=== PATIENT | male | born 1930 | race Caucasian/White ===

== ENCOUNTER 2017-05-07 08:23 | Day surgery (SDC) | payer OTHER ==
[~2017-05-07] VITALS: Ht 175.3 cm; Wt 93.1 kg
[~2017-05-07 08:23] MED LIST: AMOCLA875 PO; ATOR80 PO; CARV3.125 PO; CLOP75 PO; Colace100 MG PO; DOXA4; DOXA4 PO; FOLI1; GLIM2; HEMOTOB PR; IBUP200; Lisinopril2.5 MG; PANT40; PRED20; PRED5; Percocet 5-3251 EACH PO; SERT25 PO; VITB100
[2017-05-07] MEDS ORDERED: Aspir 8181 MG (09:08)
[2017-05-07] MEDS ORDERED: CARV3.125 (09:08)
[2017-05-07] MEDS ORDERED: TAMS.4ER (09:08)
== END 2017-05-07 11:20 | disposition home or self-care (01) ==
LOC: ORSCSDS 08:23
PROVIDERS: Surgery
PROC: 0DBL8ZX Excision of Transverse Colon, Via Natural or Artificial Opening Endoscopic, Diagnostic (ICD-10-PCS; principal; 2017-05-07 10:00)
PROC: 0DBK8ZX Excision of Ascending Colon, Via Natural or Artificial Opening Endoscopic, Diagnostic (ICD-10-PCS; principal; 2017-05-07 10:00)
PROC: 0DBN8ZX Excision of Sigmoid Colon, Via Natural or Artificial Opening Endoscopic, Diagnostic (ICD-10-PCS; principal; 2017-05-07 10:00)
DX: Z12.11 Encounter for screening for malignant neoplasm of colon (principal); D12.2 Benign neoplasm of ascending colon; D12.3 Benign neoplasm of transverse colon; D12.5 Benign neoplasm of sigmoid colon; K64.8 Other hemorrhoids; K57.30 Diverticulosis of large intestine without perforation or abscess without bleeding; Z80.0 Family history of malignant neoplasm of digestive organs; Z86.010 Personal history of colon polyps; I10 Essential (primary) hypertension; M06.9 Rheumatoid arthritis, unspecified; N40.0 Benign prostatic hyperplasia without lower urinary tract symptoms; G47.33 Obstructive sleep apnea (adult) (pediatric); I25.10 Atherosclerotic heart disease of native coronary artery without angina pectoris; I25.2 Old myocardial infarction; Z79.01 Long term (current) use of anticoagulants; Z79.82 Long term (current) use of aspirin; Z79.899 Other long term (current) drug therapy
CPT/HCPCS: 88305; 93005; 93010; J0330; J1980; J2405

== ENCOUNTER → 2017-09-19 | Outpatient (CLI) | payer OTHER ==
[~2017-09-19] MED LIST changes: +Aspir 8181 MG; +CARV3.125; +TAMS.4ER
[2017-09-19 08:28] LABS: Source, Urine Clean Catch
[2017-09-19 14:35] LABS: Bacteria Rare /hpf; Red Blood Cells, Urine 0-2 /hpf (0-2); Squamous Epithelial Cells Rare /hpf (Few); White Blood Cells, Urine 0-2 /hpf (0-5)
== END | disposition home or self-care (01) ==
LOC: LAB 08:26 → LAB SHORT 08:26
PROVIDERS: Nurse Practitioner Family
DX: R31.21 Asymptomatic microscopic hematuria (principal)
CPT/HCPCS: 81015

== ENCOUNTER → 2017-09-20 | Outpatient (CLI) | payer OTHER ==
[2017-09-20 16:33] LABS: Bacteria Not Seen /hpf; Red Blood Cells, Urine Not Seen /hpf (0-2); Squamous Epithelial Cells Rare /hpf (Few); White Blood Cells, Urine 0-2 /hpf (0-5)
== END ==
LOC: LAB 11:10 → LAB SHORT 11:10 → EDSTATUS 09-17 12:20 → LAB FUT 09-17 12:20
PROVIDERS: Nurse Practitioner Family
DX: R31.21 Asymptomatic microscopic hematuria (principal)
CPT/HCPCS: 81015

== ENCOUNTER → 2019-04-01 | Outpatient (CLI) | payer OTHER ==
[2019-04-01 16:34] LABS: Protein, Urine Random 178.5 mg/dL (0.0-11.9)
[2019-04-01 20:09] LABS: Hemoglobin 14.2 g/dL (13.5-17.5)
[2019-04-01 20:40] LABS: Albumin, Blood 3.4 g/dL (3.4-5.0); Anion Gap 7 mmol/L (6-16); Blood Urea Nitrogen 31 mg/dL (8-24); Bun/Creatinine Ratio 21.8 (12.0-20.0); CO2, Blood 24 mmol/L (21-32); Calcium, Blood 9.3 mg/dL (8.5-10.1); Chloride, Blood 108 mmol/L (98-108); Creatinine, Blood 1.42 mg/dL (0.60-1.20); Glomerular Filtration Rate 50 (60-); Glucose, Blood 97 mg/dL (70-99); Phosphorus, Blood 3.6 mg/dL (2.5-4.9); Potassium, Blood 4.2 mmol/L (3.5-5.5); Sodium, Blood 139 mmol/L (136-145)
== END | disposition home or self-care (01) ==
LOC: LAB 14:52 → LAB SHORT 14:52
PROVIDERS: Internal Medicine
DX: N17.9 Acute kidney failure, unspecified (principal); I10 Essential (primary) hypertension
CPT/HCPCS: 36415; 80069; 82306; 82570; 83970; 84156; 85014; 85018

== ENCOUNTER → 2019-06-10 | Outpatient (CLI) | payer OTHER ==
[2019-06-10 13:00] LABS: Protein, Urine Quantitative 58.8 mg/dL (0.0-11.9)
== END | disposition home or self-care (01) ==
LOC: LAB 11:10 → LAB SHORT 11:10
PROVIDERS: Internal Medicine
DX: N17.9 Acute kidney failure, unspecified (principal)
CPT/HCPCS: 81050; 84156

== ENCOUNTER 2020-04-30 07:25 | Emergency (ER) | payer OTHER ==
[~2020-04-30] VITALS: Ht 172.7 cm; Wt 93.0 kg
[~2020-04-30 07:25] MED LIST changes: -Aspir 8181 MG; +Aspir 8181 MG PO
[2020-09-21] MEDS ORDERED: CYCL10 PO (08:21)
[2020-09-21] MEDS ORDERED: LOSA50 PO (08:21)
[2020-09-21] MEDS ORDERED: AMLO5 PO (08:21)
[2020-09-21] MEDS ORDERED: OMEP20ER PO (08:22)
== END 2020-04-30 08:42 | disposition home or self-care (01) ==
LOC: ER 07:25
DX: M25.551 Pain in right hip (principal); G89.29 Other chronic pain; I10 Essential (primary) hypertension; E78.00 Pure hypercholesterolemia, unspecified; Z88.1 Allergy status to other antibiotic agents; Z88.5 Allergy status to narcotic agent; Z79.02 Long term (current) use of antithrombotics/antiplatelets; Z79.82 Long term (current) use of aspirin; Z79.899 Other long term (current) drug therapy
CPT/HCPCS: 73502; 99283-25

== ENCOUNTER → 2020-05-05 | Outpatient (CLI) | payer OTHER ==
[~2020-05-05] MED LIST changes: +AMLO5 PO; +CYCL10 PO; +DOXA2 PO; +LOSA50 PO; +OMEP20ER PO
[2020-05-05 15:50] LABS: Creatinine, Urine Random 70.6 mg/dL (27.00-270.00); Protein, Urine Random 92.8 mg/dL (0.0-11.9); Protein/Creat Ratio, Ur Random 1.3
== END | disposition home or self-care (01) ==
LOC: LAB SHORT 12:00 → PLD 12:00
PROVIDERS: Internal Medicine
DX: N18.31 Chronic kidney disease, stage 3a (principal)
CPT/HCPCS: 82570; 84156

== ENCOUNTER 2020-09-28 07:05 | Day surgery (SDC) | payer OTHER ==
[~2020-09-28] VITALS: Ht 172.7 cm; Wt 194.2 kg
[~2020-09-28 07:05] MED LIST changes: -DOXA2 PO
[2020-09-28] MEDS ORDERED: DOXA2 PO (08:14)
--- NOTE | 2020-09-28 08:17 | NUR ---
09/28/20 0817 Nadira mina FIRST IV IN RIGHT HAND MISSED SECOND IV IN RIGHT WRIST WORKED
== END 2020-09-28 09:45 | disposition home or self-care (01) ==
LOC: ORSCSDS 07:05
PROVIDERS: Surgery
PROC: 0DBK8ZX Excision of Ascending Colon, Via Natural or Artificial Opening Endoscopic, Diagnostic (ICD-10-PCS; principal; 2020-09-28 08:30)
PROC: 0DBL8ZX Excision of Transverse Colon, Via Natural or Artificial Opening Endoscopic, Diagnostic (ICD-10-PCS; principal; 2020-09-28 08:30)
DX: Z12.11 Encounter for screening for malignant neoplasm of colon (principal); D12.3 Benign neoplasm of transverse colon; D12.2 Benign neoplasm of ascending colon; Z80.0 Family history of malignant neoplasm of digestive organs; K57.30 Diverticulosis of large intestine without perforation or abscess without bleeding; I10 Essential (primary) hypertension; N18.30 Chronic kidney disease, stage 3 unspecified; E78.5 Hyperlipidemia, unspecified; Z79.899 Other long term (current) drug therapy; Z79.82 Long term (current) use of aspirin; I25.10 Atherosclerotic heart disease of native coronary artery without angina pectoris; G47.33 Obstructive sleep apnea (adult) (pediatric)
CPT/HCPCS: 88305; J2704; J7120